=== PATIENT | male | born 1950 | race Caucasian/White ===

== ENCOUNTER 2017-04-02 10:08 | Day surgery (SDC) | payer OTHER ==
[2017-03-23 20:28] VITALS: BMI 33.6
[2017-04-02] MEDS ORDERED: PROPOFOL 20 ML ONE ×2 (10:22)
[2017-04-02 12:07] VITALS: TEMP 97.7
[2017-04-02 12:44] VITALS: BP 122/68; PULSE 60
--- NOTE | 2017-04-04 12:19 | PATH ---
Surgical Pathology Report Patient Name: STEVE TIJERINA [facility]. Rec. #: [id number] /Age/Gender: 1950 (Age: 66) / M Account: [id number] Location: [facility]-ENDOSCOPY Taken: 04/02/2017 Received: 04/02/2017 Reported: 04/04/2017 Physicians: Kevan Sandoval M.D. Specimen(s) Received A: BX DUODENUM B: BX ANTRUM Clinical History GERD, history of polyps Duodenal erosions, gastritis Final Diagnosis A. DUODENUM, BIOPSY: DUODENAL MUCOSA WITH NO PATHOLOGIC CHANGES. NO HISTOLOGIC EVIDENCE OF GLUTEN SENSITIVE ENTEROPATHY (CELIAC SPRUE) IDENTIFIED. B. STOMACH, ANTRUM, BIOPSY: MILD CHRONIC GASTRITIS. IMMUNOSTAIN FOR H. PYLORI IS NEGATIVE. Electronically Signed Ghulam Arteaga M.D. Gross Description A. Received in formalin, labeled "duodenum" is a obrien, irregular portion of soft tissue measuring 0.4 cm. in greatest dimension. The specimen is submitted in toto in one cassette. B. Received in formalin, labeled "antrum" are 2 obrien, irregular portions of soft tissue measuring 0.3 and 0.5 cm. in greatest dimension. The specimens are submitted in toto in one cassette. /04/02/201704/02/2017
== END 2017-04-02 12:45 | disposition home or self-care (01) ==
LOC: FASU-ENDO 10:08
PROVIDERS: ATTEND Internal Medicine Gastroenterology
PROC: 0DB68ZX Excision of Stomach, Via Natural or Artificial Opening Endoscopic, Diagnostic (ICD-10-PCS; 2017-04-02)
PROC: 0DJD8ZZ Inspection of Lower Intestinal Tract, Via Natural or Artificial Opening Endoscopic (ICD-10-PCS; principal; 2017-04-02 11:33)
PROC: 0DB98ZX Excision of Duodenum, Via Natural or Artificial Opening Endoscopic, Diagnostic (ICD-10-PCS; 2017-04-02 11:33)
DX: Z86.010 Personal history of colon polyps (principal); K29.50 Unspecified chronic gastritis without bleeding; R12 Heartburn; K57.30 Diverticulosis of large intestine without perforation or abscess without bleeding; K29.80 Duodenitis without bleeding; K20.9 Esophagitis, unspecified
CPT/HCPCS: 88305-TC; 88342-TC